=== PATIENT | female | born 1960 | race Caucasian/White ===

== ENCOUNTER 2017-06-12 20:27 | Emergency (ER) | payer OTHER ==
[2017-06-12 20:50] VITALS: BP 140/73
[2017-06-12] MEDS ORDERED: Amoxicillin PO (*) 500 MG CAP PO ONE (20:53)
[2017-06-12] MEDS ORDERED: Naproxen TAB* 250 MG PO ONE (20:54)
--- NOTE | 2017-06-12 20:56 | UC ---
Throat Pain/Nasal Alvaro HPI - HPI Summary HPI Summary: PT NOTES HX OF BAD TEETH. THE PAST WEEK OR SO SHE HAS DEVELOPED PAIN AND SWELLING TO HER LOWER FRONT TEETH. SHE IS GOING [facility] FO[facility]EDN[facility]. NO FEVER OR RASH. - History of Current Complaint Stated Complaint: TOOTHACHE Time Seen by Provider: 06/12/17 20:43 Hx Obtained From: Patient ?: No Onset/Duration: Gradual Onset Pain Intensity: 7 Associated Signs & Symptoms: Negative: Dysphagia, Drooling, Fever, Rash - Epiglottits Risk Factors Epiglottis Risk Factors: Negative - Allergies/Home Medications Allergies/Adverse Reactions: Allergies Allergy/AdvReac Type Severity Reaction Status Date / Time JINNY Inhibitors Allergy Coughing Verified 06/12/17 20:50 [email or web address] Allergy Itching Verified 06/12/17 20:50 Sulfa (Sulfonamide Allergy See Comment Verified 06/12/17 20:50 Antibiotics) Home Medications: Home Medications ARIPiprazole TAB* [Abilify 2 MG TAB*] 2 mg PO DAILY 06/12/17 [History Confirmed 06/12/17] Albuterol inh POWDER (NF) [Proair Respiclick] 1 puff INH TID 06/12/17 [History Confirmed 06/12/17] Aspirin [Quynh Aspirin EC Low Dose 81 MG] 81 mg PO DAILY 06/12/17 [History Confirmed 06/12/17] Atorvastatin* [Lipitor*] 10 mg PO DAILY 06/12/17 [History Confirmed 06/12/17] Budesonide/Formote 160/4.5(NF) [Symbicort 160/4.5 (NF)] 1 puff INH BID 06/12/17 [History Confirmed 06/12/17] LORazepam TAB(*) [Ativan 1 MG TAB (*)] 1 mg PO Q8H PRN 06/12/17 [History Confirmed 06/12/17] Lisinopril TAB* [Prinivil TAB*] 20 mg PO DAILY 06/12/17 [History Confirmed 06/12] Metoprolol Succinate XL TAB* [Toprol XL TAB*] 50 mg PO BID 06/12/17 [History Confirmed 06/12/17] Naproxen TAB* [Naprosyn 250 mg TAB*] 500 mg PO Q8H PRN 06/12/17 [History Confirmed 06/12/17] [place]-3 Acid Ethyl Esters [Lovaza 1 gm] 1 cap PO DAILY 06/12/17 [History Confirmed 06/12/17] Sertraline* [Zoloft*] 100 mg PO DAILY 06/12/17 [History Confirmed 06/12/17] metFORMIN* [Glucophage 500 MG TAB *] 500 mg PO BID 06/12/17 [History Confirmed 06/12/17] PMH/Surg Hx/FS Hx/Imm Hx - Additional Past Medical History Additional PMH: MS Endocrine History: Diabetes Cardiovascular History: Hypertension Respiratory History: COPD - Surgical History Surgical History: Yes Surgery Procedure, Year, and Place: Gallbladder removal, cyst removal from wrist and foot - Social History Occupation: Disabled Lives: With Family Alcohol Use: None Substance Use Type: None Smoking Status (MU): Never Smoked Tobacco - Immunization History Vaccination Up to Date: Yes Review of Systems Constitutional: Negative Skin: Negative Eyes: Negative ENT: Negative Respiratory: Negative Cardiovascular: Negative Gastrointestinal: Negative Genitourinary: Negative Motor: Negative Neurovascular: Negative Musculoskeletal: Negative Neurological: Negative Psychological: Negative Is Patient Immunocompromised?: No All Other Systems Reviewed And Are Negative: Yes Physical Exam Triage Information Reviewed: Yes Appearance: Well-Appearing Vital Signs: Initial Vital Signs Temp 98.1 F 06/12/17 20:38 Pulse 57 06/12/17 20:38 Resp 16 06/12/17 20:38 BP 140/73 06/12/17 20:38 Pulse Ox 99 06/12/17 20:38 Vital Signs Reviewed: Yes Eyes: Positive: Conjunctiva Clear ENT: Positive: Pharynx normal, TMs normal. Negative: Nasal congestion, Nasal drainage Dental: Positive: Gross Decay/Caries @ - central lower teeth with mild swelling to site but not fluctuant Neck: Positive: Supple, Nontender, No Lymphadenopathy Respiratory: Positive: Lungs clear, Normal breath sounds Cardiovascular: Positive: RRR, No Murmur Abdomen Description: Positive: Nontender, No Organomegaly, Soft Bowel Sounds: Positive: Present Neurological: Positive: Alert Psychological: Positive: Age Appropriate Behavior Skin Exam: Normal Throat Pain/Nasal Course/Dx - Course Course Of Treatment: exam c/w dental caries and dental infection. nothing to I& D. No ludwigs angina. will tx with nsaid and amoxicillin. pt states has taken amoxicillin with no reaction in past. she is going to f/u [facility] this wednesday. pt was given list of local dental providers as well. - Differential Dx/Diagnosis Provider Diagnoses: Dental infection. Dental caries Discharge - Discharge Plan Condition: Stable Disposition: HOME Prescriptions: Amoxicillin PO (*) [Amoxicillin 875 MG (*)] 875 mg PO BID 10 Days #20 tab Naproxen [Naprosyn] 500 mg PO BID 5 Days #10 tablet Patient Education Materials: Dental Abscess (ED), Toothache (ED) Referrals: Non Staff,Doctor [Primary Care Provider] - Additional Instructions: FOLLOW UP WITH [facility] THIS WEDNESDAY PLANNED
== END 2017-06-12 21:07 | disposition home or self-care (01) ==
LOC: UCCORT 20:27
DX: K04.7 Periapical abscess without sinus (principal); K02.9 Dental caries, unspecified; E11.9 Type 2 diabetes mellitus without complications; Z79.84 Long term (current) use of oral hypoglycemic drugs; I10 Essential (primary) hypertension; J44.9 Chronic obstructive pulmonary disease, unspecified; G35 Multiple sclerosis; Z79.82 Long term (current) use of aspirin; Z88.1 Allergy status to other antibiotic agents; Z88.2 Allergy status to sulfonamides
CPT/HCPCS: 99202; A9270-GY; G0463